=== PATIENT | male | born 1930 | race Caucasian/White ===

== ENCOUNTER 2018-03-15 15:35 | Emergency (ER) | payer MEDICARE, OTHER ==
[2018-03-15] MEDS: ONDANSETRON (ODT) 4 MG TAB ODT (16:07)
[2018-03-15] MEDS: HYDROCODONE/APAP (10/325) TAB PO (16:07)
== END 2018-03-15 17:41 | disposition home or self-care (01) ==
LOC: E/R 15:35
DX: R07.81 Pleurodynia (principal); R40.2142 Coma scale, eyes open, spontaneous, at arrival to emergency department; R40.2362 Coma scale, best motor response, obeys commands, at arrival to emergency department
CPT/HCPCS: 71100; 99283-25